=== PATIENT | female | born 1990 | race Caucasian/White ===

== ENCOUNTER 2017-12-28 20:55 | Emergency (ER) | payer OTHER ==
--- NOTE | 2017-12-28 21:05 | ER Report ---
History and Physical Time Seen By MD: 21:04 HPI/ROS CHIEF COMPLAINT: Vaginal bleeding/possible HISTORY OF PRESENT ILLNESS: Patient is a 27-year-old female who is a who is approximately 11 days from the end of her last menstrual period who presents with vaginal bleeding and pelvic cramping that began early this morning. She states that the bleeding is somewhat heavy. And is passing a few clots. She states that her period that ended on December 17 was shorter than usual. Her normal menstrual period lasts approximately 4 days with moderate bleeding with the 5th day usually mild. States this last. She only had 2 days of moderate bleeding with the 3rd day only being mild bleeding. She is concerned about possible . She is currently not using any methods for control. She is scheduled for a [employer] appointment on Sunday. She did not take any home tests. Eyes any other significant gynecological history. She denies any other significant past medical history. She also reports some dizziness when standing up with associated nausea. She also reports that her "breasts feel tender" REVIEW OF SYSTEMS: Constitutional: No fever, no chills. Eyes: No discharge. ENT: No sore throat. Cardiovascular: No chest pain, no palpitations. Respiratory: No cough, no shortness of breath. Gastrointestinal: Pelvic pain, associated nausea without vomiting. Genitourinary: No hematuria. Vaginal bleeding Musculoskeletal: No back pain. Skin: No rashes. Neurological: No headache. Allergies: Coded Allergies: No Known Drug Allergies (Unverified , 12/28/17) Home Meds No Active Prescriptions or Reported Meds Past Medical/Surgical History Noncontributory Constitutional Vital Sign - Last 24 Hours 12/28/17 12/28/17 12/28/17 12/28/17 21:00 21:10 21:25 21:30 Temp 98.2 Pulse 68 72 69 Resp 16 B/P (MAP) 123/79 107/78 (88) Pulse Ox 95 96 96 O2 Delivery Room Air 12/28/17 12/28/17 12/28/17 12/28/17 21:40 21:45 22:00 22:15 Pulse 70 70 74 72 B/P (MAP) 112/64 (80) Pulse Ox 96 97 99 99 12/28/17 22:30 Pulse 72 B/P (MAP) 107/75 (86) Pulse Ox 97 Physical Exam General/Constitutional: Patient is awake, alert, nontoxic and in no acute respiratory distress. Head: Normocephalic and atraumatic. Eyes: Conjunctival clear, Pupils are equal and reactive to light. Extraocular muscles are intact and symmetrical. Sclera are clear and anicteric. Ears:External canals are clear. Tympanic membranes are clear with normal landmarks and light reflex. Nares: No rhinorrhea or bleeding. Turbinates are pink and moist. Oropharyngeal: Mucous membranes are moist. There is no pharyngeal erythema or exudate. There are no palatal petechiae. Uvula is midline and symmetrical. Neck: Supple, no adenopathy. Cardiovascular: Heart is regular rate and rhythm without audible murmurs, rubs or gallops. Pulmonary: Lungs are clear to auscultation bilaterally. There are no wheezes, rales, or rhonchi. Chest rise is symmetrical Abdomen: Soft, nontender, no guarding or peritoneal signs. Extremities: No gross deformities, No peripheral cyanosis. Able to move all 4 extremities. Neuro: Alert and oriented X3, Cranial nerves 2 thru 12 are intact and symmetrical. Patient has normal gait. Skin: No rashes, skin is warm dry and well perfused. Medical Decision Making Data Points Result Diagram: 12/28/17213512/28/172135 Laboratory Hematology Test 12/28/17 21:00 12/28/17 21:36 Urine Color Straw Urine Clarity Clear Urine pH 6.0 pH (4.8-9.5) Urine Specific [place] 1.009 Urine Protein Negative mg/dL (NEGATIVE) Urine Glucose (UA) Negative mg/dL (NEGATIVE) Urine Ketones Negative mg/dL (NEGATIVE) Urine Blood Large (NEGATIVE) Urine Nitrite Negative (NEGATIVE) Urine Bilirubin Negative (NEGATIVE) Urine Urobilinogen Negative mg/dL (0.2-1.9) Urine Leukocyte Esterase Negative (NEGATIVE) Urine RBC 56 /HPF (0-2/HPF) Urine WBC <1 /HPF (0-5/HPF) Urine Squamous Epithelial Cells Many /LPF (</=FEW) Urine Bacteria Negative /HPF (NONE-FEW) Urine Mucus None /HPF (NONE-FEW) Urine HCG, Qualitative Negative (NEGATIVE) Red Blood Count 4.51 M/uL (4.17-5.56) Mean Corpuscular Volume 86.6 fL (80.0-96.0) Mean Corpuscular Hemoglobin 29.9 pg (26.0-33.0) Mean Corpuscular Hemoglobin Concent 34.5 g/dL (32.0-36.0) Red Cell Distribution Width 13.4 % (11.5-14.5) Mean Platelet Volume 7.0 fL (7.2-11.1) Neutrophils (%) (Auto) 50.8 % (39.4-72.5) Lymphocytes (%) (Auto) 42.4 % (17.6-49.6) Monocytes (%) (Auto) 3.2 % (4.1-12.4) Eosinophils (%) (Auto) 3.3 % (0.4-6.7) Basophils (%) (Auto) 0.3 % (0.3-1.4) Nucleated RBC Relative Count (auto) 0.0 /100WBC Neutrophils # (Auto) 5.6 K/uL (2.0-7.4) Lymphocytes # (Auto) 4.7 K/uL (1.3-3.6) Monocytes # (Auto) 0.3 K/uL (0.3-1.0) Eosinophils # (Auto) 0.4 K/uL (0.0-0.5) Basophils # (Auto) 0.0 K/uL (0.0-0.1) Nucleated RBC Absolute Count (auto) 0.00 K/uL Sodium Level 139 mmol/L (137-145) Potassium Level 3.2 mmol/L (3.5-5.0) Chloride Level 102 mmol/L (98-107) Carbon Dioxide Level 25 mmol/L (22-31) Blood Urea Nitrogen 11 mg/dl (7-18) Creatinine 0.70 mg/dl (0.52-1.04) Glomerular Filtration Rate Calc > 60.0 Random Glucose 109 mg/dl (75-110) Calcium Level 9.1 mg/dl (8.4-10.2) Total Bilirubin 0.5 mg/dl (0.2-1.3) Aspartate Amino Transf (AST/SGOT) 27 U/L (0-35) Alanine Aminotransferase (ALT/SGPT) 24 U/L (0-56) Alkaline Phosphatase 64 U/L (0-126) Total Protein 7.4 gm/dl (6.3-8.2) Albumin 4.3 g/dl (3.5-5.0) Human Chorionic Gonadotropin, Quant < 2 mIU/ml Chemistry Test 12/28/17 21:00 12/28/17 21:36 Urine Color Straw Urine Clarity Clear Urine pH 6.0 pH (4.8-9.5) Urine Specific [place] 1.009 Urine Protein Negative mg/dL (NEGATIVE) Urine Glucose (UA) Negative mg/dL (NEGATIVE) Urine Ketones Negative mg/dL (NEGATIVE) Urine Blood Large (NEGATIVE) Urine Nitrite Negative (NEGATIVE) Urine Bilirubin Negative (NEGATIVE) Urine Urobilinogen Negative mg/dL (0.2-1.9) Urine Leukocyte Esterase Negative (NEGATIVE) Urine RBC 56 /HPF (0-2/HPF) Urine WBC <1 /HPF (0-5/HPF) Urine Squamous Epithelial Cells Many /LPF (</=FEW) Urine Bacteria Negative /HPF (NONE-FEW) Urine Mucus None /HPF (NONE-FEW) Urine HCG, Qualitative Negative (NEGATIVE) White Blood Count 11.1 k/uL (4.5-11.0) Red Blood Count 4.51 M/uL (4.17-5.56) Hemoglobin 13.5 g/dL (12.0-16.0) Hematocrit 39.0 % (34.0-47.0) Mean Corpuscular Volume 86.6 fL (80.0-96.0) Mean Corpuscular Hemoglobin 29.9 pg (26.0-33.0) Mean Corpuscular Hemoglobin Concent 34.5 g/dL (32.0-36.0) Red Cell Distribution Width 13.4 % (11.5-14.5) Platelet Count 272 K/uL (150-450) Mean Platelet Volume 7.0 fL (7.2-11.1) Neutrophils (%) (Auto) 50.8 % (39.4-72.5) Lymphocytes (%) (Auto) 42.4 % (17.6-49.6) Monocytes (%) (Auto) 3.2 % (4.1-12.4) Eosinophils (%) (Auto) 3.3 % (0.4-6.7) Basophils (%) (Auto) 0.3 % (0.3-1.4) Nucleated RBC Relative Count (auto) 0.0 /100WBC Neutrophils # (Auto) 5.6 K/uL (2.0-7.4) Lymphocytes # (Auto) 4.7 K/uL (1.3-3.6) Monocytes # (Auto) 0.3 K/uL (0.3-1.0) Eosinophils # (Auto) 0.4 K/uL (0.0-0.5) Basophils # (Auto) 0.0 K/uL (0.0-0.1) Nucleated RBC Absolute Count (auto) 0.00 K/uL Glomerular Filtration Rate Calc > 60.0 Calcium Level 9.1 mg/dl (8.4-10.2) Total Bilirubin 0.5 mg/dl (0.2-1.3) Aspartate Amino Transf (AST/SGOT) 27 U/L (0-35) Alanine Aminotransferase (ALT/SGPT) 24 U/L (0-56) Alkaline Phosphatase 64 U/L (0-126) Total Protein 7.4 gm/dl (6.3-8.2) Albumin 4.3 g/dl (3.5-5.0) Human Chorionic Gonadotropin, Quant < 2 mIU/ml Urinalysis Test 12/28/17 21:00 Urine Color Straw Urine Clarity Clear Urine pH 6.0 pH (4.8-9.5) Urine Specific [place] 1.009 Urine Protein Negative mg/dL (NEGATIVE) Urine Glucose (UA) Negative mg/dL (NEGATIVE) Urine Ketones Negative mg/dL (NEGATIVE) Urine Blood Large (NEGATIVE) Urine Nitrite Negative (NEGATIVE) Urine Bilirubin Negative (NEGATIVE) Urine Urobilinogen Negative mg/dL (0.2-1.9) Urine Leukocyte Esterase Negative (NEGATIVE) Urine RBC 56 /HPF (0-2/HPF) Urine WBC <1 /HPF (0-5/HPF) Urine Squamous Epithelial Cells Many /LPF (</=FEW) Urine Bacteria Negative /HPF (NONE-FEW) Urine Mucus None /HPF (NONE-FEW) Urine HCG, Qualitative Negative (NEGATIVE) ED Course/Re-evaluation Clinical Indication for ER IV: Hydration, IV Access ED Course 12/28/2017 9:27:50 pm patient with earlier than expected menses. Urine test is negative. Plan will be serum test along with CBC, metabolic panel type and screen. Re-evaluation 12/28/2017 10:41:46 pm patient remains comfortable in the emergency department , blood counts are normal both urine and serum tests are negative. I recommended that we proceed with a pelvic exam however patient refused stating that she is going to see her OB doctor on Sunday. I counseled patient on returning to the emergency department for worsening bleeding or pain or any fevers prior to her appointment scheduled on Sunday. Patient feels comfortable with this disposition at this time. Decision to Disposition Date: Dec 28, 2017 Decision to Disposition Time: 22:43 Depart Departure Latest Vital Signs Vital Signs Date Time Temp Pulse Resp B/P (MAP) Pulse Ox O2 Delivery O2 Flow Rate FiO2 12/28/17 22:30 72 107/75 (86) 97 12/28/17 21:00 98.2 16 Room Air Impression: Primary Impression: Menometrorrhagia Condition: Improved Disposition: HOME OR SELF-CARE New Scripts No Active Prescriptions or Reported Meds Patient Instructions: Menorrhagia (ED) Additional Instructions: Keep your follow-up appointment with her OB doctor coming up this Sunday. Return for increasing vaginal bleeding of greater than one maxi pad per hour for 3 hours. Also return for increasing pain or fevers. HARDEEP LERMA MD Dec 28, 2017 21:04
[2017-12-28] MEDS ORDERED: NS(*) 0.9% 1000 ML BAG 1,000 ML IV ONE (21:15)
[2017-12-28] MEDS ORDERED: ONDANSETRON 4 MG/2 ML VIAL IVP ONE (21:15)
[2017-12-28 21:43] LABS: PLATELET COUNT, AUTOMATED 272 K/uL (150-450)
[2017-12-28 22:30] VITALS: BP 107/75
== END 2017-12-28 22:48 | disposition home or self-care (01) ==
LOC: ER 21:07
DX: N92.1 Excessive and frequent menstruation with irregular cycle (principal)
CPT/HCPCS: 81001; 81025; 82040; 82247; 82310; 82374; 82435; 82565; 82947; 84075; 84132; 84155; 84295; 84450; 84460; 84520; 84702; 85025; 86850; 86900; 86901; 99282

== ENCOUNTER 2018-04-24 18:48 | Emergency (ER) | payer OTHER ==
--- NOTE | 2018-04-24 19:00 | ER Report ---
History and Physical Time Seen By MD: 19:00 Hx. of Stated Complaint: PT REPORTS RLQ PAIN ONSET SEV HOURS AGO, NAUSEA AND BURPING, BLOATING, 5 DAYS LATE ON PERIOD HPI/ROS CHIEF COMPLAINT: abdominal pain HISTORY OF PRESENT ILLNESS: This is a 27 year old female. She had sudden onset of abdominal pain. Started on lower right area, but no mainly suprapubic area and across into both lower quadrants. She has nausea but no vomiting. Has had spotting for a couple of days and says she is 5 days overdue for her period. She has some pain with urination, but does not feel like bladder pain. pain also worsens with movement. No fevers or chills. Nothing makes the pain better. She took a morning after pill about a week ago. REVIEW OF SYSTEMS: Cardiovascular: No chest pain. Respiratory: No shortness of breath. Musculoskeletal: No musculoskeletal pain. Neurological: No numbness. No weakness. Allergies: Coded Allergies: No Known Drug Allergies (Unverified , 12/28/17) Home Meds Active Scripts Ondansetron (ZOFRAN ODT) 4 Mg Tab.rapdis, 4 MG PO Q6H PRN for NAUSEA/VOMITING, #20 TAB.JACQUELINE 0 Refills Prov:LUCERO ZENDEJAS MD 04/24/18 Hydrocodone Bit/Acetaminophen (HYDROCODON-ACETAMINOPHEN 5-325) 1 Each Tablet, 1 EACH PO Q4H PRN for PAIN, #12 TAB 0 Refills Prov:LUCERO ZENDEJAS MD 04/24/18 Reviewed Nurses Notes: Yes Constitutional Vital Sign - Last 24 Hours 04/24/18 04/24/18 04/24/18 04/24/18 18:48 18:55 18:55 19:00 Temp 98.0 Pulse ??? 71 Resp 16 B/P (MAP) 135/87 (103) 135/87 128/85 (99) Pulse Ox 100 O2 Delivery Room Air 04/24/18 04/24/18 04/24/18 04/24/18 19:03 19:18 19:30 19:33 Pulse 64 70 71 B/P (MAP) 121/85 (97) Pulse Ox 97 97 99 04/24/18 04/24/18 04/24/18 04/24/18 19:48 20:00 20:03 20:18 Pulse 72 68 ??? B/P (MAP) 116/85 (95) Pulse Ox 99 100 04/24/18 04/24/18 04/24/18 04/24/18 20:33 20:35 20:40 20:55 Pulse ??? 76 77 B/P (MAP) 116/84 (95) Pulse Ox 99 98 04/24/18 04/24/18 04/24/18 04/24/18 21:00 21:10 21:25 21:30 Pulse 78 76 B/P (MAP) 122/76 (91) 108/71 (83) Pulse Ox 96 96 04/24/18 04/24/18 04/24/18 04/24/18 21:40 21:55 22:00 22:10 Pulse 78 ? B/P (MAP) ???/??? (1665) Pulse Ox 94 04/24/18 04/24/18 04/24/18 04/24/18 22:25 22:30 22:35 22:45 Pulse ? B/P (MAP) ???/??? (1665) 110/70 (83) 04/24/18 04/24/18 04/24/18 04/24/18 22:50 23:00 23:05 23:20 Pulse 74 71 71 B/P (MAP) 110/72 (85) Pulse Ox 94 94 94 04/24/18 04/24/18 23:30 23:35 Pulse ??? B/P (MAP) 113/73 (86) Intake and Output 04/24/18 04/24/18 04/25/18 15:00 23:00 07:00 Intake Total 1000 ml Balance 1000 ml Physical Exam General Appearance: The patient is alert. No acute distress. Eyes: Pupils are equal, round. No pallor, injection or icterus. ENT: Mucous membranes are moist. Normal oral mucosa. Posterior oropharynx is normal. Respiratory: Lungs are clear to auscultation. Cardiovascular: Regular rate and rhythm. No murmurs, gallops or rubs. Normal capillary refill. Gastrointestinal: Abdomen is soft, but very tender across lower abdomen, worse in suprapubic area. Nondistended. Guarding, but no rebound. Normal active bowel sounds. No costovertebral angle tenderness with percussion. Neurological: Alert and oriented x3. Skin: Warm and dry. No rashes. Musculoskeletal: Extremities are nontender. No tenderness in palpation of the cervical, thoracic and lumbar spine. DIFFERENTIAL DIAGNOSIS: After history and physical exam, differential diagnosis was considered for abdominal pain including but not limited to appendicitis, ovarian cyst, ectopic , cramping with menses, colitis or enteritis, and urinary tract infection. Medical Decision Making Data Points Result Diagram: 04/24/185 04/24/181854 Laboratory Hematology Test 04/24/18 18:52 04/24/18 18:55 Urine Color Yellow Urine Clarity Clear Urine pH 7.0 pH (4.8-9.5) Urine Specific [place] 1.012 Urine Protein Negative mg/dL (NEGATIVE) Urine Glucose (UA) Negative mg/dL (NEGATIVE) Urine Ketones 20 mg/dL (NEGATIVE) Urine Blood Moderate (NEGATIVE) Urine Nitrite Negative (NEGATIVE) Urine Bilirubin Negative (NEGATIVE) Urine Urobilinogen Negative mg/dL (0.2-1.9) Urine Leukocyte Esterase Negative (NEGATIVE) Urine RBC <1 /HPF (0-2/HPF) Urine WBC 1 /HPF (0-5/HPF) Urine Squamous Epithelial Cells Many /LPF (</=FEW) Urine Bacteria Few /HPF (NONE-FEW) Urine Mucus None /HPF (NONE-FEW) Red Blood Count 5.20 M/uL (4.17-5.56) Mean Corpuscular Volume 85.6 fL (80.0-96.0) Mean Corpuscular Hemoglobin 28.8 pg (26.0-33.0) Mean Corpuscular Hemoglobin Concent 33.6 g/dL (32.0-36.0) Red Cell Distribution Width 14.6 % (11.5-14.5) Mean Platelet Volume 7.0 fL (7.2-11.1) Neutrophils (%) (Auto) 82.9 % (39.4-72.5) Lymphocytes (%) (Auto) 12.7 % (17.6-49.6) Monocytes (%) (Auto) 2.9 % (4.1-12.4) Eosinophils (%) (Auto) 1.0 % (0.4-6.7) Basophils (%) (Auto) 0.5 % (0.3-1.4) Nucleated RBC Relative Count (auto) 0.1 /100WBC Neutrophils # (Auto) 15.8 K/uL (2.0-7.4) Lymphocytes # (Auto) 2.4 K/uL (1.3-3.6) Monocytes # (Auto) 0.6 K/uL (0.3-1.0) Eosinophils # (Auto) 0.2 K/uL (0.0-0.5) Basophils # (Auto) 0.1 K/uL (0.0-0.1) Nucleated RBC Absolute Count (auto) 0.01 K/uL Peripheral Blood Smear Yes Y/N Sodium Level 140 mmol/L (137-145) Potassium Level 3.7 mmol/L (3.5-5.0) Chloride Level 101 mmol/L (98-107) Carbon Dioxide Level 21 mmol/L (22-31) Blood Urea Nitrogen 15 mg/dl (7-18) Creatinine 0.70 mg/dl (0.52-1.04) Glomerular Filtration Rate Calc > 60.0 Random Glucose 101 mg/dl (75-110) Calcium Level 9.8 mg/dl (8.4-10.2) Total Bilirubin 0.8 mg/dl (0.2-1.3) Aspartate Amino Transf (AST/SGOT) 25 U/L (0-35) Alanine Aminotransferase (ALT/SGPT) 23 U/L (0-56) Alkaline Phosphatase 73 U/L (0-126) Total Protein 9.3 g/dl (6.3-8.2) Albumin 5.2 g/dl (3.5-5.0) Human Chorionic Gonadotropin, Qual Negative (NEGATIVE) Chemistry Test 04/24/18 18:52 04/24/18 18:55 Urine Color Yellow Urine Clarity Clear Urine pH 7.0 pH (4.8-9.5) Urine Specific Scar[place] 1.012 Urine Protein Negative mg/dL (NEGATIVE) Urine Glucose (UA) Negative mg/dL (NEGATIVE) Urine Ketones 20 mg/dL (NEGATIVE) Urine Blood Moderate (NEGATIVE) Urine Nitrite Negative (NEGATIVE) Urine Bilirubin Negative (NEGATIVE) Urine Urobilinogen Negative mg/dL (0.2-1.9) Urine Leukocyte Esterase Negative (NEGATIVE) Urine RBC <1 /HPF (0-2/HPF) Urine WBC 1 /HPF (0-5/HPF) Urine Squamous Epithelial Cells Many /LPF (</=FEW) Urine Bacteria Few /HPF (NONE-FEW) Urine Mucus None /HPF (NONE-FEW) White Blood Count 19.1 k/uL (4.5-11.0) Red Blood Count 5.20 M/uL (4.17-5.56) Hemoglobin 15.0 g/dL (12.0-16.0) Hematocrit 44.5 % (34.0-47.0) Mean Corpuscular Volume 85.6 fL (80.0-96.0) Mean Corpuscular Hemoglobin 28.8 pg (26.0-33.0) Mean Corpuscular Hemoglobin Concent 33.6 g/dL (32.0-36.0) Red Cell Distribution Width 14.6 % (11.5-14.5) Platelet Count 335 K/uL (150-450) Mean Platelet Volume 7.0 fL (7.2-11.1) Neutrophils (%) (Auto) 82.9 % (39.4-72.5) Lymphocytes (%) (Auto) 12.7 % (17.6-49.6) Monocytes (%) (Auto) 2.9 % (4.1-12.4) Eosinophils (%) (Auto) 1.0 % (0.4-6.7) Basophils (%) (Auto) 0.5 % (0.3-1.4) Nucleated RBC Relative Count (auto) 0.1 /100WBC Neutrophils # (Auto) 15.8 K/uL (2.0-7.4) Lymphocytes # (Auto) 2.4 K/uL (1.3-3.6) Monocytes # (Auto) 0.6 K/uL (0.3-1.0) Eosinophils # (Auto) 0.2 K/uL (0.0-0.5) Basophils # (Auto) 0.1 K/uL (0.0-0.1) Nucleated RBC Absolute Count (auto) 0.01 K/uL Peripheral Blood Smear Yes Y/N Glomerular Filtration Rate Calc > 60.0 Calcium Level 9.8 mg/dl (8.4-10.2) Total Bilirubin 0.8 mg/dl (0.2-1.3) Aspartate Amino Transf (AST/SGOT) 25 U/L (0-35) Alanine Aminotransferase (ALT/SGPT) 23 U/L (0-56) Alkaline Phosphatase 73 U/L (0-126) Total Protein 9.3 g/dl (6.3-8.2) Albumin 5.2 g/dl (3.5-5.0) Human Chorionic Gonadotropin, Qual Negative (NEGATIVE) Urinalysis Test 04/24/18 18:52 Urine Color Yellow Urine Clarity Clear Urine pH 7.0 pH (4.8-9.5) Urine Specific [place] 1.012 Urine Protein Negative mg/dL (NEGATIVE) Urine Glucose (UA) Negative mg/dL (NEGATIVE) Urine Ketones 20 mg/dL (NEGATIVE) Urine Blood Moderate (NEGATIVE) Urine Nitrite Negative (NEGATIVE) Urine Bilirubin Negative (NEGATIVE) Urine Urobilinogen Negative mg/dL (0.2-1.9) Urine Leukocyte Esterase Negative (NEGATIVE) Urine RBC <1 /HPF (0-2/HPF) Urine WBC 1 /HPF (0-5/HPF) Urine Squamous Epithelial Cells Many /LPF (</=FEW) Urine Bacteria Few /HPF (NONE-FEW) Urine Mucus None /HPF (NONE-FEW) EKG/Imaging Imaging EXAMINATION: CT abdomen and pelvis with contrast COMPARISON: None. HISTORY: Abdomen pain. PROCEDURE: Multiplanar contrast enhanced CT of the abdomen and pelvis with 75 mL intravenous Isovue 370. One of the following dose optimization techniques was utilized in the performance of this exam: Automated exposure control; adjustment of the mA and/or kV according to the patient's size; or use of an iterative reconstruction technique. Specific details can be referenced in the facility's radiology CT exam operational policy. FINDINGS: Visualized thorax: Negative. Liver: Negative. Gallbladder and biliary system: Negative Spleen: Negative. Pancreas: Negative. Adrenal glands: Negative. Kidneys and bladder: No renal mass or evidence of an obstructive uropathy. Urinary bladder is unremarkable. Vessels: Within normal limits. Bowel and mesentery: Stomach is within normal limits. Prominent fluid-filled loops of small bowel. There is fecalization of the distal small bowel contents; this is suggestive of delayed intestinal transit but there is no evidence of obstruction. Segmentally visualized appendix is unremarkable. Small amount of stool in the colon. Questionable mild inflammation and a few distal small bowel loops. Pelvic organs: Asymmetrically enlarged 4.6 x 4.7 x 4.4 cm left ovary. Lymph nodes: Within normal limits. Free air/free fluid: Small amount of nonspecific free fluid within the dependent pelvis. No organized fluid collection. No pneumoperitoneum. Abdominal wall and osseous structures: Abdominal wall is intact. L5 bilateral chronic pars defects with minimal spondylolisthesis. IMPRESSION: 1. Prominent fluid and stool-filled loops of distal small bowel with questionable mild wall inflammation. The appearance is most suggestive of a gastroenteritis/infectious enteritis. Developing obstruction is considered less likely. 2. Left ovary mild asymmetric enlargement. This could be physiologic although consider further characterization by pelvic ultrasound if there is a clinical concern for acute gynecologic pathology. 3. L5 bilateral chronic pars defects with minimal spondylolisthesis. Results were discussed with LUCERO ZENDEJAS at 04/24/2018 8:47 PM. Report Dictated By: Sarmad Pablo MD at 04/24/2018 8:36 PM Examination: Pelvic ultrasound Comparison: CT earlier today. History: abd pain, left ovary enlarged on CT. Negative test. Findings: Standard endovaginal pelvic ultrasound with color flow and spectral analysis. Uterus: Uterus measurement: 7.3 x 3.8 x 4.4 cm Endometrium measurement: 10 mm The endometrium and myometrium are homogeneous with no suspicious mass or fluid collection identified. Adnexa: Right ovary: 2.5 x 3.0 x 2.6 cm . No suspicious ovarian or adnexal mass. Normal arterial and venous flow is documented within the ovary on Doppler evaluation. Left ovary: 5.6 x 3.6 x 4.4 cm . 3.3 x 2.5 x 3.0 cm slightly heterogeneous hypoechoic nonvascular mass. A separate 1.5 cm dominant follicle is also present. Normal waveforms within the surrounding ovarian parenchyma. Free fluid: Moderate volume of fluid containing internal echoes. Urinary bladder: Unremarkable. IMPRESSION: 1. Negative ultrasound of the uterus and right ovary. 2. Left ovary 3.3 cm complex nonvascular mass. A hemorrhagic cyst or less likely endometrioma are favored. A solid lesion is considered unlikely although s onographic follow-up in 6-10 weeks to document resolution is recommended. 3. No evidence of ovarian torsion. 4. Moderate volume of pelvic fluid containing internal echoes. Given the CT findings, this could be reactive fluid related to the bowel process although given the appearance of the left ovary, fluid from a recently ruptured cyst is a possibility as well. Results were discussed with LUCERO ZENDEJAS at 04/24/2018 10:53 PM. Report Dictated By: Sarmad Pablo MD at 04/24/2018 10:45 PM ED Course/Re-evaluation Clinical Indication for ER IV: Hydration, IV Access ED Course After initial evaluation, the patient was given morphine 4 mg IV, Zofran 4 mg IV, and normal saline 1 L. Pain was much improved. CT scan was done once labs showed a negative test. Her urine test did not show signs of infection. White count is elevated but metabolic panel looks okay. CT scan showed some fluid-filled loops of small bowel that looks more like a gastroenteritis or enteritis picture. Did not look like obstruction. Discussed this with radiology. There was an enlargement of the left ovary and after discussing this with the patient we went ahead and ordered an ultrasound as well. This showed what appeared to be likely hemorrhagic cyst and recommended follow-up. She will follow-up with [facility]. We did give another dose of morphine prior to the ultrasound to help with pain. She is feeling a lot better. We will send her home with Zofran and Lortab to use to help with gastroenteritis related pain and nausea with follow-up if she is not improving. Decision to Disposition Date: Apr 24, 2018 Decision to Disposition Time: 23:29 Depart Departure Latest Vital Signs Vital Signs Date Time Temp Pulse Resp B/P (MAP) Pulse Ox O2 Delivery O2 Flow Rate FiO2 04/24/18 23:35 ??? 04/24/18 23:30 113/73 (86) 04/24/18 23:20 94 04/24/18 18:55 98.0 16 Room Air Impression: Primary Impression: Gastroenteritis Additional Impression: Ovarian cyst Condition: Improved Disposition: HOME OR SELF-CARE New Scripts Ondansetron (ZOFRAN ODT) 4 Mg Tab.rapdis 4 MG PO Q6H PRN for NAUSEA/VOMITING, #20 TAB.JACQUELINE 0 Refills Prov: LUCERO ZENDEJAS MD 04/24/18 Hydrocodone Bit/Acetaminophen (HYDROCODON-ACETAMINOPHEN 5-325) 1 Each Tablet 1 EACH PO Q4H PRN for PAIN, #12 TAB 0 Refills Prov: LUCERO ZENDEJAS MD 04/24/18 Patient Instructions: Gastroenteritis (ED), Ovarian Cyst (ED) Additional Instructions: It appears that your abdominal pain is from a gastroenteritis. This is generally caused by a virus and can last about 2-3 days. You may experience some diarrhea as well as this progresses. Rest and increase fluid intake. Consider a bland diet while you are not feeling well. Take Zofran 4mg, one every 6 hours as needed for nausea. Take Lortab 5/325, one every 4 hours as needed for severe pain. Ibuprofen 200mg over the counter tablets, 4 every 8 hours as needed for pain. You also had a cyst on the left ovary. We recommend follow-up with an [facility] in the next 1-2 weeks for re-evaluation and follow-up plans. Problem Qualifiers Additional Impression: Ovarian cyst Laterality: left Qualified Codes: N83.202 - Unspecified ovarian cyst, left side LUCERO ZENDEJAS MD Apr 24, 2018 19:00
[2018-04-24 19:10] LABS: PLATELET COUNT, AUTOMATED 335 K/uL (150-450)
[2018-04-24] MEDS ORDERED: NS(*) 0.9% 1000 ML BAG 1,000 ML IV ONE (19:35)
[2018-04-24] MEDS ORDERED: MORPHINE 4 MG/ML SDV IVP ONE ×2 (19:35→22:35)
[2018-04-24] MEDS ORDERED: ONDANSETRON 4 MG/2 ML VIAL IVP ONE (19:35)
[2018-04-24] MEDS ORDERED: IOPAMIDOL 76% 75 ML INFUS BTL 75 ML ONE (19:50)
--- NOTE | 2018-04-24 20:56 | RADIOLOGY IMAGING REPORT ---
FACILITY: [facility] [place] PATIENT NAME: Willa Camarena : 1990 MR: [id number] V: [id number] EXAM DATE: ORDERING PHYSICIAN: LUCERO ZENDEJAS TECHNOLOGIST: Location: [facility] Patient: Willa Camarena : 1990 Visit/Account:[id number] Date of Sevice: 04/24/2018 EXAMINATION: CT abdomen and pelvis with contrast COMPARISON: None. HISTORY: Abdomen pain. PROCEDURE: Multiplanar contrast enhanced CT of the abdomen and pelvis with 75 mL intravenous Isovue 3 70. One of the following dose optimization techniques was utilized in the performance of this exam: A utomated exposure control; adjustment of the mA and/or kV according to the patient's size; or use of an iterative reconstruction technique. Specific details can be referenced in the facility's radiolo gy CT exam operational policy. FINDINGS: Visualized thorax: Negative. Liver: Negative. Gallbladder and biliary system: Negative Spleen: Negative. Pancreas: Negative. Adrenal glands: Negative. Kidneys and bladder: No renal mass or evidence of an obstructive uropathy. Urinary bladder is unrema rkable. Vessels: Within normal limits. Bowel and mesentery: Stomach is within normal limits. Prominent fluid-filled loops of small bowel. Th ere is fecalization of the distal small bowel contents; this is suggestive of delayed intestinal rodriguez sit but there is no evidence of obstruction. Segmentally visualized appendix is unremarkable. Small a mount of stool in the colon. Questionable mild inflammation and a few distal small bowel loops. Pelvic organs: Asymmetrically enlarged 4.6 x 4.7 x 4.4 cm left ovary. Lymph nodes: Within normal limits. Free air/free fluid: Small amount of nonspecific free fluid within the dependent pelvis. No organized fluid collection. No pneumoperitoneum. Abdominal wall and osseous structures: Abdominal wall is intact. L5 bilateral chronic pars defects wi th minimal spondylolisthesis. IMPRESSION: 1. Prominent fluid and stool-filled loops of distal small bowel with questionable mild wall inflammat ion. The appearance is most suggestive of a gastroenteritis/infectious enteritis. Developing obstruct ion is considered less likely. 2. Left ovary mild asymmetric enlargement. This could be physiologic although consider further charac terization by pelvic ultrasound if there is a clinical concern for acute gynecologic pathology. 3. L5 bilateral chronic pars defects with minimal spondylolisthesis. Results were discussed with LUCERO ZENDEJAS at 04/24/2018 8:47 PM. Report Dictated By: Sarmad Pablo MD at 04/24/2018 8:36 PM Report E-Signed By: Sarmad Pablo MD at 04/24/2018 8:51 PM WSN:[id number]
--- NOTE | 2018-04-24 22:58 | RADIOLOGY IMAGING REPORT ---
FACILITY: [facility] PATIENT NAME: Willa Camarena : 1990 MR: [id number] V: [id number] EXAM DATE: ORDERING PHYSICIAN: LUCERO ZENDEJAS TECHNOLOGIST: Location: [facility] [place] Patient: Willa Camarena : 1990 Visit/Account:[id number] Date of Sevice: 04/24/2018 Examination: Pelvic ultrasound Comparison: CT earlier today. History: abd pain, left ovary enlarged on CT. Negative test. Findings: Standard endovaginal pelvic ultrasound with color flow and spectral analysis. Uterus: Uterus measurement: 7.3 x 3.8 x 4.4 cm Endometrium measurement: 10 mm The endometrium and myometrium are homogeneous with no suspicious mass or fluid collection identified . Adnexa: Right ovary: 2.5 x 3.0 x 2.6 cm . No suspicious ovarian or adnexal mass. Normal arterial and venous flow is documented within the ovary on Doppler evaluation. Left ovary: 5.6 x 3.6 x 4.4 cm . 3.3 x 2.5 x 3.0 cm slightly heterogeneous hypoechoic nonvascular mas s. A separate 1.5 cm dominant follicle is also present. Normal waveforms within the surrounding ovari an parenchyma. Free fluid: Moderate volume of fluid containing internal echoes. Urinary bladder: Unremarkable. IMPRESSION: 1. Negative ultrasound of the uterus and right ovary. 2. Left ovary 3.3 cm complex nonvascular mass. A hemorrhagic cyst or less likely endometrioma are fav ored. A solid lesion is considered unlikely although sonographic follow-up in 6-10 weeks to document resolution is recommended. 3. No evidence of ovarian torsion. 4. Moderate volume of pelvic fluid containing internal echoes. Given the CT findings, this could be r eactive fluid related to the bowel process although given the appearance of the left ovary, fluid fro m a recently ruptured cyst is a possibility as well. Results were discussed with LUCERO ZENDEJAS at 04/24/2018 10:53 PM. Report Dictated By: Sarmad Pablo MD at 04/24/2018 10:45 PM Report E-Signed By: Sarmad Pablo MD at 04/24/2018 10:54 PM WSN:[id number]
[2018-04-24 23:30] VITALS: BP 113/73
[2018-04-24] MEDS ORDERED: LOR5/325 PO (23:30)
[2018-04-24] MEDS ORDERED: ACET/HYDROC 5/325MG TH ER ONLY 2 TAB/BOTTLE PO ONE (23:30)
[2018-04-24] MEDS ORDERED: ONDA4TAB PO (23:30)
[2018-04-24] MEDS ORDERED: ONDANSETRON 4 MG ODT TH SL ONE (23:30)
== END 2018-04-24 23:40 | disposition home or self-care (01) ==
LOC: ER 19:13
DX: K52.9 Noninfective gastroenteritis and colitis, unspecified (principal); N83.202 Unspecified ovarian cyst, left side
CPT/HCPCS: 74177; 76830; 81001; 84703; 85025; 96361; 96374; 96375; 96376; 99284; J2270; J2405; J7030; Q9967; S0119; 82040; 82247; 82310; 82374; 82435; 82565; 82947; 84075; 84132; 84155; 84295; 84450; 84460; 84520